=== PATIENT | male | born 1995 | race Caucasian/White ===

== ENCOUNTER 2016-10-08 15:17 | Emergency (ER) | payer OTHER ==
[2016-10-08 15:29] VITALS: BP 163/96; PULSE 100; TEMP 98.5; BMI 30.9
--- NOTE | 2016-10-08 16:59 | PDOC ---
History of Present Illness - General Chief Complaint: Abscess Boil Stated Complaint: CYST ON BACK Time Seen by Provider: 10/08/16 16:06 History Source: Patient Exam Limitations: No Limitations - History of Present Illness Initial Comments: 10/08/16 16:48 20 yr male with pilonidal abscess draining for 2 days. Pt with no fever or chills. Pt states he sits and drives for long periods of time. no urinary and bowel dysfunction. Pt states today the abscess drained a large amount of yellow white pus. 10/09/16 11:12 10/09/16 11:16 10/09/16 11:17 10/09/16 11:27 Past History - Past Medical History Allergies/Adverse Reactions: Allergies Allergy/AdvReac Type Severity Reaction Status Date / Time No Known Allergies Allergy Verified 10/08/16 15:27 Home Medications: Ambulatory Orders Cephalexin [Keflex] 250 mg PO QID #28 capsule 10/08/16 Other medical history: denies - Immunization History Immunization Up to Date: Yes - Psycho/Social/Smoking Cessation Hx Suicidal Ideation: No Smoking History: Current every day smoker Information on smoking cessation initiated: No Hx Alcohol Use: No Drug/Substance Use Hx: No Substance Use Type: None Review of Systems - Review of Systems Able to Perform ROS?: Yes Is the patient limited [place] Citizen proficient: No Constitutional: No: Symptoms Reported HEENTM: No: Symptoms Reported Respiratory: No: Symptoms reported Cardiac (ROS): No: Symptoms Reported ABD/GI: No: Symptoms Reported : No: Symptoms Reported Musculoskeletal: No: Symptoms Reported Integumentary: Yes: See HPI *Physical Exam - Vital Signs Last Vital Signs Temp Pulse Resp BP Pulse Ox 98.5 F 100 H 20 163/96 98 10/08/16 15:27 10/08/16 15:27 10/08/16 15:27 10/08/16 15:27 10/08/16 15:27 - Physical Exam General Appearance: Yes: Nourished, Appropriately Dressed HEENT: positive: EOMI, NANETTE Neck: positive: Supple Respiratory/Chest: positive: Lungs Clear, Normal Breath Sounds Cardiovascular: positive: Regular Rhythm, Regular Rate Gastrointestinal/Abdominal: positive: Normal Bowel Sounds, Soft. negative: Tender Musculoskeletal: positive: Normal Inspection Extremity: positive: Normal Capillary Refill, Normal Inspection, Normal Range of Motion Integumentary: positive: Normal Color, Dry, Warm, Other (2cm indurated pilonidal tenderness , fluctuant 1cm center, mild surrounding erythema ) Neurologic: positive: records management associate II-XII NML intact, Fully Oriented, Alert, Normal Mood/ Affect, Normal Response, Motor Strength 5/5 Procedures - Incision and Drainage I&D Site: Left: Buttock (pilonidal) Betadine cleansed: Yes Anesthesia: other (benzocaine) Blade Size: 10 Attempts: 1 Plain Packing: No Dressing: Yes Progress: 10/09/16 11:27 small amount of blood returned with scant pus sterile dressing placed Medical Decision Making - Medical Decision Making 10/09/16 11:19 cc: pilonidal abscess will drain place on keflex and follow up with surgery pt agrees to plan and all questions asked and answered 10/09/16 11:27 *DC/Admit/Observation/Transfer Diagnosis at time of Disposition: Pilonidal abscess - Discharge Dispostion Disposition: HOME Condition at time of disposition: Improved - Prescriptions Prescriptions: Cephalexin [Keflex] 250 mg PO QID #28 capsule - Referrals Referrals: STAFF,NOT ON [Primary Care Provider] - Janeen Heath MD [Staff Physician] - - Patient Instructions Additional Instructions: follow with the surgeon for follow up frequent warm baths take Kelfex as directed for 7 days take motrin (ibuprofen 600mg) every 6hrs for pain avoid long periods of sitting down please call office in the morning to schedule appointment for next week Return to ER if any worsening symptoms
== END 2016-10-08 17:05 | disposition home or self-care (01) ==
LOC: JERFT 15:17
PROC: 0H96XZZ Drainage of Back Skin, External Approach (ICD-10-PCS; principal; 2016-10-08)
DX: L02.212 Cutaneous abscess of back [any part, except buttock and flank] (principal)
CPT/HCPCS: 99281-25

== ENCOUNTER 2021-01-02 16:55 | Inpatient (IN) | payer OTHER ==
[2021-01-02] MEDS ORDERED: SODIUM CHLORIDE 1,000 ML IV STA (18:01)
[2021-01-02] MEDS ORDERED: ACETAMINOPHEN 1000 MG/100 ML VIAL (NON FORMULARY) IVPB ONE (18:01)
[2021-01-02] MEDS ORDERED: ACETAMINOPHEN INJECTION 100 ML IVPB ONE (18:46)
[2021-01-02 19:25] LABS: BASO % 0.5 % (0-2.0); EOS % 2.5 % (0-4.5); HEMATOCRIT 46.4 % (35.4-49); HEMOGLOBIN 15.8 GM/dL (11.7-16.9); LYMPH % 25.3 % (8-40); MCH 28.4 pg (25.7-33.7); MEAN CELL VOLUME 83.5 fl (80-96); MEAN PLT VOLUME 8.7 fl (7.5-11.1); MONO % 5.1 % (3.8-10.2); NEUT % 66.6 % (42.8-82.8); PLATELET COUNT 221 10^3/uL (134-434); RBC 5.56 M/mm3 (4.00-5.60); RDW 13.4 % (11.9-15.9); WHITE BLOOD COUNT 8.6 K/mm3 (4.0-10.0)
[2021-01-02 19:33] LABS: INR 1.12 (0.83-1.09); PROTHROMBIN TIME (PATIENT) 13.5 SEC (9.7-13.0)
[2021-01-02 19:37] LABS: URINE APPEARANCE CLEAR; URINE BILIRUBIN 1+ (NEGATIVE); URINE COLOR DK YELLOW; URINE GLUCOSE (UA) NEGATIVE (NEGATIVE); URINE KETONE TRACE (NEGATIVE); URINE LEUK ESTERASE NEGATIVE (NEGATIVE); URINE NITRITE NEGATIVE (NEGATIVE); URINE PROTEIN TRACE (NEGATIVE)
[2021-01-02 19:52] LABS: ALBUMIN 4.7 g/dl (3.4-5.0); BLOOD UREA NITROGEN 10.7 mg/dL (7-18); CALCIUM 10.1 mg/dL (8.5-10.1)
[2021-01-02 19:55] LABS: CREATININE 0.9 mg/dL (0.55-1.3)
[2021-01-02] MEDS ORDERED: PIPERACILLIN/TAZOB 3.375 GM 3.375 GM in DEXTROSE 5%-WATER - 50 ML IVPB ONE (21:49)
[2021-01-02] MEDS ORDERED: SODIUM CHLORIDE 1,000 ML IV SCH (22:15)
[2021-01-02] MEDS ORDERED: PIPERACILLIN/TAZOB 3.375 GM 3.375 GM/50 ML BAG IVPB ONE (22:55)
[2021-01-02] MEDS ORDERED: ONDANSETRON 4 MG/2 ML VIAL IVPUSH PRN (23:37)
[2021-01-02] MEDS ORDERED: CEFTRIAXONE 1,000 MG in DEXTROSE 5%-WATER - 50 ML IVPB SCH (23:39)
[2021-01-03] MEDS ORDERED: CEFTRIAXONE 1 GM in DEXTROSE 5%-WATER - 50 ML IVPB SCH (01:30)
[2021-01-03] MEDS ORDERED: CEFTRIAXONE 1 GM/50 ML BAG ONE (01:34)
[2021-01-03] MEDS ORDERED: ACETAMINOPHEN 1000 MG/100 ML VIAL (NON FORMULARY) IVPB PRN ×3 (02:06→07:50)
[2021-01-03 03:13] VITALS: BMI 31.4
[2021-01-03] MEDS ORDERED: BUPIVACAINE HCL/PF 0.5% (5MG/ML) 10 ML VIAL ONE (06:17)
[2021-01-03] MEDS ORDERED: BUPIVACAINE HCL/PF 0.25% (2.5MG/ML) 10 ML VIAL ONE (06:17)
[2021-01-03] MEDS ORDERED: BUPIVACAINE HCL/PF 0.5% (5 MG/ML) 30 ML VIAL IJ ONE ×2 (07:11→07:21)
[2021-01-03] MEDS ORDERED: KETOROLAC TROMETHAMINE 30 MG/1 ML VIAL IVPUSH PRN (07:42)
[2021-01-03] MEDS ORDERED: LACTATED RINGERS SOLUTION 1,000 ML/1,000 ML INFUS.BAG IV SCH (07:45)
[2021-01-03] MEDS ORDERED: SODIUM CHLORIDE 1,000 ML IV SCH (07:50)
[2021-01-03] MEDS ORDERED: ONDANSETRON 4 MG/2 ML VIAL IVPUSH PRN ×2 (07:50→08:20)
[2021-01-03] MEDS ORDERED: oxyCODONE HCL 5 MG TABLET PO PRN (08:20)
[2021-01-03] MEDS ORDERED: DEXTROSE 5%-WATER - 50 ML IVPB ONE (09:17)
[2021-01-03] MEDS ORDERED: cefTRIAXone SODIUM 1 GM VIAL ONE (09:17)
[2021-01-03] MEDS: CEFTRIAXONE 1 GM in DEXTROSE 5%-WATER - 50 ML IVPB SCH (09:22)
[2021-01-03] MEDS: LACTATED RINGERS SOLUTION 1,000 ML IV SCH (09:22)
[2021-01-03 11:49] LABS: HEMOGLOBIN 14.4 GM/dL (11.7-16.9); MCH 28.3 pg (25.7-33.7); MCHC 33.6 g/dl (32.0-35.9); MEAN CELL VOLUME 84.3 fl (80-96); MEAN PLT VOLUME 8.9 fl (7.5-11.1); PLATELET COUNT 220 10^3/uL (134-434); RDW 13.4 % (11.9-15.9); WHITE BLOOD COUNT 10.5 K/mm3 (4.0-10.0)
[2021-01-03 11:56] LABS: INR 1.15 (0.83-1.09); PROTHROMBIN TIME (PATIENT) 14.1 SEC (9.7-13.0)
[2021-01-03 12:00] LABS: CALCIUM 9.1 mg/dL (8.5-10.1)
[2021-01-03 12:02] LABS: ALBUMIN 3.9 g/dl (3.4-5.0); BLOOD UREA NITROGEN 8.2 mg/dL (7-18)
[2021-01-03 12:05] LABS: PHOSPHOROUS 2.4 mg/dL (2.5-4.9); TOT PROT 6.9 g/dl (6.4-8.2)
[2021-01-03 12:10] LABS: CREATININE 0.9 mg/dL (0.55-1.3)
[2021-01-04] MEDS: LACTATED RINGERS SOLUTION 1,000 ML IV SCH (05:47)
[2021-01-04 10:16] LABS: HEMATOCRIT 37.7 % (35.4-49); HEMOGLOBIN 12.7 GM/dL (11.7-16.9); MCH 28.4 pg (25.7-33.7); MCHC 33.6 g/dl (32.0-35.9); MEAN CELL VOLUME 84.6 fl (80-96); MEAN PLT VOLUME 8.9 fl (7.5-11.1); PLATELET COUNT 205 10^3/uL (134-434); RBC 4.46 M/mm3 (4.00-5.60); RDW 13.5 % (11.9-15.9); WHITE BLOOD COUNT 9.8 K/mm3 (4.0-10.0)
[2021-01-04 10:30] LABS: ALBUMIN 3.9 g/dl (3.4-5.0); BLOOD UREA NITROGEN 5.8 mg/dL (7-18); CALCIUM 9.5 mg/dL (8.5-10.1); MAGNESIUM 1.9 mg/dL (1.8-2.4)
[2021-01-04 10:33] LABS: CREATININE 0.8 mg/dL (0.55-1.3)
[2021-01-04 10:34] LABS: BILIRUBIN,TOTAL 1.4 mg/dL (0.2-1); TOT PROT 6.4 g/dl (6.4-8.2)
[2021-01-04] MEDS ORDERED: cefTRIAXone SODIUM 1 GM VIAL ONE (11:07)
[2021-01-04] MEDS ORDERED: DEXTROSE 5%-WATER - 50 ML IVPB ONE (11:08)
[2021-01-04] MEDS: CEFTRIAXONE 1 GM in DEXTROSE 5%-WATER - 50 ML IVPB SCH (11:21)
[2021-01-04] MEDS ORDERED: ACETAMINOPHEN 325 MG TABLET (FP) PO ONE (11:34)
[2021-01-04 12:49] VITALS: BP 114/66; PULSE 70; TEMP 98
== END 2021-01-04 14:35 | disposition home or self-care (01) | DRG 225 ==
LOC: JER 16:55 → JERBED 22:29 → J6S 01-03 02:27
PROVIDERS: ADMIT Hospitalist; ATTEND Internal Medicine
PROC: 0DTJ4ZZ Resection of Appendix, Percutaneous Endoscopic Approach (ICD-10-PCS; principal; 2021-01-03 06:00)
DX: K35.890 Other acute appendicitis without perforation or gangrene (principal); F17.210 Nicotine dependence, cigarettes, uncomplicated; R16.1 Splenomegaly, not elsewhere classified; K57.30 Diverticulosis of large intestine without perforation or abscess without bleeding
CPT/HCPCS: 36415; 74177-TC; 80053; 81003; 83735; 84100; 85025; 85027; 85610; 87086; 88304-TC; 94010; 94760; 99285-25; C9803; J0131; Q9967; U0003; U0005

== ENCOUNTER 2022-09-18 17:25 | Emergency (ER) | payer OTHER ==
[2022-09-18 17:28] VITALS: BP 119/81; PULSE 61; RESP 18; TEMP 98; BMI 27.0
== END 2022-09-18 18:20 | disposition home or self-care (01) ==
LOC: JERFT 17:25
DX: M25.532 Pain in left wrist (principal)
CPT/HCPCS: 73110-TC-LT-FY; 73130-TC-LT-FY; 99283-25